=== PATIENT | female | born 1950 | race Asian ===

== ENCOUNTER 2021-01-14 16:44 | Emergency (ER) | payer BC ==
[~2021-01-14] VITALS: Ht 165.1 cm; Wt 70.0 kg
[2021-01-14 18:18] LABS: BASOPHILS % 0.4 % (0.0-2.0); EOSINOPHILS % 0.9 % (0.0-5.0); HEMATOCRIT. 41.5 % (36.0-48.0); HEMOGLOBIN. 13.6 g/dL (12.0-16.0); LYMPHOCYTES % 15.5 % (20.0-50.0); MEAN CORPUSCULAR HEMOGLOBIN 28.6 pg (28.0-32.0); MEAN CORPUSCULAR VOLUME 87.1 fL (81.0-99.0); MEAN PLATELET VOLUME 7.5 fl (7.4-10.4); MONOCYTES % 4.8 % (2.0-8.0); NEUTROPHILS % 78.4 % (40.0-76.0); PLATELET 294 x1000/uL (130-400); RED BLOOD CELL COUNT 4.77 mill/uL (4.2-5.4); RED CELL DISTRIBUTION WIDTH 13.2 % (11.6-14.6)
[2021-01-14 18:22] LABS: CHLORIDE 102 mEq/L (98-107)
[2021-01-14 20:00] VITALS: BP 144/76
== END 2021-01-14 20:00 | disposition home or self-care (01) ==
LOC: ER 16:44
DX: R55 Syncope and collapse (principal); E87.2 Acidosis
CPT/HCPCS: 36415; 80053; 83605; 84484; 85025; 93005; 99284